=== PATIENT | female | born 1950 | race Caucasian/White ===

== ENCOUNTER → 2018-06-20 | Outpatient (CLI) | payer MEDICARE ==
[~2018-06-20] MED LIST: Prinivil5 MG PO
[2018-06-20 14:42] LABS: Alanine Aminotransfer (ALT/SGP 14 U/L (12-78); Albumin, Blood 3.6 g/dL (3.4-5.0); Albumin/Globulin Ratio 1.1 (0.8-1.8); Alk Phos 88 U/L (50-136); Anion Gap 8 mmol/L (6-16); Aspartate Aminotrans (AST/SGOT 13 U/L (12-37); Bilirubin, Total 0.6 mg/dL (0.1-1.0); Blood Urea Nitrogen 16 mg/dL (8-24); Bun/Creatinine Ratio 21.5 (12.0-20.0); CHOL/HDL RATIO 3.5; CO2, Blood 30 mmol/L (21-32); Chloride, Blood 100 mmol/L (98-108); Cholesterol 201 mg/dL (50-200); Creatinine, Blood 0.74 mg/dL (0.40-1.00); Globulin, Blood 3.2 g/dL (2.2-4.0); Glomerular Filtration Rate >60 (60-); Glucose, Blood 155 mg/dL (70-99); HDL Cholesterol 58 mg/dL (>39); LDL/HDL RATIO 1.6; Low Density Lipoprotein Chol 91 mg/dL (0-110); Potassium, Blood 3.7 mmol/L (3.5-5.5); Sodium, Blood 138 mmol/L (136-145); Total Protein, Blood 6.8 g/dL (6.4-8.2); Triglycerides 262 mg/dL (30-160); Very Low Density Lipoprot Chol 52 mg/dL (6-32)
== END | disposition home or self-care (01) ==
LOC: LAB SHORT 13:38 → LAB 13:38
PROVIDERS: Hospitalist
DX: I10 Essential (primary) hypertension (principal); E53.8 Deficiency of other specified B group vitamins; G62.9 Polyneuropathy, unspecified; E53.9 Vitamin B deficiency, unspecified
CPT/HCPCS: 80053; 80061; 82607

== ENCOUNTER → 2018-06-21 | Outpatient (CLI) | payer MEDICARE | END | disposition home or self-care (01) | LOC: LAB SHORT 13:23 → LAB 13:23 | DX: E53.8 Deficiency of other specified B group vitamins (principal); E63.9 Nutritional deficiency, unspecified; R73.9 Hyperglycemia, unspecified | CPT/HCPCS: 83036 ==

== ENCOUNTER → 2019-09-01 | Outpatient (CLI) | payer MEDICARE ==
[2019-09-01 14:59] LABS: CHOL/HDL RATIO 3.8; Cholesterol 222 mg/dL (50-200); HDL Cholesterol 58 mg/dL (>39); LDL/HDL RATIO 1.6; Low Density Lipoprotein Chol 95 mg/dL (0-110); Triglycerides 345 mg/dL (30-160); Very Low Density Lipoprot Chol 69 mg/dL (6-32)
== END | disposition home or self-care (01) ==
LOC: LAB 13:47 → LAB SHORT 13:47
PROVIDERS: Hospitalist
DX: E11.40 Type 2 diabetes mellitus with diabetic neuropathy, unspecified (principal); I10 Essential (primary) hypertension
CPT/HCPCS: 80061; 83036

== ENCOUNTER → 2019-09-04 | Outpatient (CLI) | payer MEDICARE | END | disposition home or self-care (01) | LOC: LAB SHORT 14:27 → LAB 14:27 | DX: E11.40 Type 2 diabetes mellitus with diabetic neuropathy, unspecified (principal); I10 Essential (primary) hypertension | CPT/HCPCS: 82043 ==

== ENCOUNTER 2020-03-29 16:32 | Emergency (ER) | payer MEDICARE ==
[~2020-03-29] VITALS: Ht 157.5 cm; Wt 105.7 kg
[~2020-03-29 16:32] MED LIST changes: +HYDCHL25 PO; +LISI5 PO; +METFORMIN HCL500 M2 PO; +METO100ER PO
[2020-03-29 17:24] LABS: BASOPHILS ABSOLUTE AUTO 0.09 K/mm3 (0.00-0.23); BASOPHILS PERCENT AUTO 1 % (0-2); EOSINOPHILS ABSOLUTE AUTO 0.18 K/mm3 (0.00-0.68); EOSINOPHILS PERCENT AUTO 2 % (0-6); Hematocrit 39.6 % (33.0-51.0); Hemoglobin 13.5 g/dL (11.5-16.0); IMMATURE GRAN ABSOLUTE AUTO 0.05 K/mm3 (0.00-0.10); IMMATURE GRAN PERCENT AUTO 1 % (0-1); LYMPHOCYTES ABSOLUTE AUTO 2.32 K/mm3 (0.84-5.20); LYMPHOCYTES PERCENT AUTO 22 % (21-46); MONOCYTES ABSOLUTE AUTO 0.66 K/mm3 (0.16-1.47); MONOCYTES PERCENT AUTO 6 % (4-13); Mean Corpuscular HGB 30.8 pg (26.0-34.0); Mean Corpuscular HGB Conc 34.1 g/dL (31.5-36.5); Mean Corpuscular Volume 90 fL (80-100); Mean Platelet Volume 10.5 fL (9.1-12.4); NEUTROPHILS ABSOLUTE AUTO 7.24 K/mm3 (1.96-9.15); NEUTROPHILS PERCENT AUTO 69 % (41-73); Platelet Count 288 K/mm3 (150-400); RDW Coefficient Variation 11.9 % (11.7-14.2); RDW Standard Deviation 39.5 fL (35.1-46.3); Red Blood Cell Count 4.38 M/mm3 (3.80-5.20); White Blood Cell Count 10.54 K/mm3 (4.00-11.30)
[2020-03-29 17:57] LABS: Alanine Aminotransfer (ALT/SGP 16 U/L (12-78); Albumin, Blood 3.9 g/dL (3.4-5.0); Albumin/Globulin Ratio 1.2 (0.8-1.8); Alk Phos 86 U/L (50-136); Anion Gap 9 mmol/L (6-16); Aspartate Aminotrans (AST/SGOT 20 U/L (12-37); Bilirubin, Total 0.6 mg/dL (0.1-1.0); Blood Urea Nitrogen 25 mg/dL (8-24); Bun/Creatinine Ratio 23.4 (12.0-20.0); CO2, Blood 29 mmol/L (21-32); Calcium, Blood 9.4 mg/dL (8.5-10.1); Chloride, Blood 105 mmol/L (98-108); Creatinine, Blood 1.07 mg/dL (0.40-1.00); Globulin, Blood 3.3 g/dL (2.2-4.0); Glomerular Filtration Rate 54 (60-); Glucose, Blood 177 mg/dL (70-99); Potassium, Blood 3.4 mmol/L (3.5-5.5); Sodium, Blood 143 mmol/L (136-145); Total Protein, Blood 7.2 g/dL (6.4-8.2); Troponin I <0.015 ng/mL (0.000-0.040)
[2020-03-29] MEDS ORDERED: ASPI325 PO (18:30)
[2020-03-29] MEDS ORDERED: AZIT250 PO (21:46)
== END 2020-03-29 22:02 | disposition home or self-care (01) ==
LOC: ER 16:32
PROVIDERS: Physician Assistant
DX: J18.9 Pneumonia, unspecified organism (principal); I10 Essential (primary) hypertension; E11.9 Type 2 diabetes mellitus without complications; Z79.82 Long term (current) use of aspirin; Z79.84 Long term (current) use of oral hypoglycemic drugs; Z88.2 Allergy status to sulfonamides; Z79.899 Other long term (current) drug therapy
CPT/HCPCS: 36415; 71260; 80053; 83880; 84484; 85025; 85379; 93005; 93010; 99285-25; Q9967

== ENCOUNTER 2021-07-09 18:38 | Emergency (ER) | payer MEDICARE ==
[~2021-07-09] VITALS: Ht 157.5 cm; Wt 105.7 kg
[~2021-07-09 18:38] MED LIST changes: +ASPI325 PO; +AZIT250 PO
[2021-07-09 19:33] LABS: BASOPHILS ABSOLUTE AUTO 0.11 K/mm3 (0.00-0.23); BASOPHILS PERCENT AUTO 1 % (0-2); EOSINOPHILS ABSOLUTE AUTO 0.25 K/mm3 (0.00-0.68); EOSINOPHILS PERCENT AUTO 2 % (0-6); Hematocrit 39.4 % (33.0-51.0); Hemoglobin 13.3 g/dL (11.5-16.0); IMMATURE GRAN ABSOLUTE AUTO 0.05 K/mm3 (0.00-0.10); IMMATURE GRAN PERCENT AUTO 1 % (0-1); LYMPHOCYTES PERCENT AUTO 19 % (21-46); MONOCYTES ABSOLUTE AUTO 0.54 K/mm3 (0.16-1.47); MONOCYTES PERCENT AUTO 5 % (4-13); Mean Corpuscular HGB 31.3 pg (26.0-34.0); Mean Corpuscular HGB Conc 33.8 g/dL (31.5-36.5); Mean Corpuscular Volume 93 fL (80-100); Mean Platelet Volume 10.3 fL (9.1-12.4); NEUTROPHILS ABSOLUTE AUTO 7.77 K/mm3 (1.96-9.15); NEUTROPHILS PERCENT AUTO 72 % (41-73); Platelet Count 279 K/mm3 (150-400); RDW Coefficient Variation 12.2 % (11.7-14.2); RDW Standard Deviation 41.8 fL (35.1-46.3); Red Blood Cell Count 4.25 M/mm3 (3.80-5.20); White Blood Cell Count 10.82 K/mm3 (4.00-11.30)
[2021-07-09 19:56] LABS: Alanine Aminotransfer (ALT/SGP 14 U/L (12-78); Albumin, Blood 3.8 g/dL (3.4-5.0); Albumin/Globulin Ratio 1.1 (0.8-1.8); Alk Phos 80 U/L (50-136); Anion Gap 7 mmol/L (6-16); Aspartate Aminotrans (AST/SGOT 17 U/L (12-37); Bilirubin, Total 0.4 mg/dL (0.1-1.0); Blood Urea Nitrogen 26 mg/dL (8-24); CO2, Blood 27 mmol/L (21-32); Calcium, Blood 9.3 mg/dL (8.5-10.1); Chloride, Blood 103 mmol/L (98-108); Creatinine, Blood 0.87 mg/dL (0.40-1.00); Globulin, Blood 3.5 g/dL (2.2-4.0); Glomerular Filtration Rate >60 (60-); Glucose, Blood 156 mg/dL (70-99); Potassium, Blood 3.6 mmol/L (3.5-5.5); Sodium, Blood 137 mmol/L (136-145); Total Protein, Blood 7.3 g/dL (6.4-8.2)
== END 2021-07-09 22:14 | disposition home or self-care (01) ==
LOC: ER 18:38
PROVIDERS: Physician Assistant
DX: R07.9 Chest pain, unspecified (principal); I10 Essential (primary) hypertension; E11.9 Type 2 diabetes mellitus without complications; Z79.82 Long term (current) use of aspirin; Z79.84 Long term (current) use of oral hypoglycemic drugs; Z79.899 Other long term (current) drug therapy; Z88.2 Allergy status to sulfonamides
CPT/HCPCS: 36415; 71046; 80053; 84484; 85025; 93005; 93010; 99284-25

== ENCOUNTER 2022-10-26 15:51 | Observation (INO) | payer MEDICARE ==
[2022-10-26 16:26] LABS: BASOPHILS ABSOLUTE AUTO 0.08 K/mm3 (0.00-0.23); BASOPHILS PERCENT AUTO 1 % (0-2); EOSINOPHILS ABSOLUTE AUTO 0.25 K/mm3 (0.00-0.68); EOSINOPHILS PERCENT AUTO 3 % (0-6); Hemoglobin 13.7 g/dL (11.5-16.0); IMMATURE GRAN ABSOLUTE AUTO 0.02 K/mm3 (0.00-0.10); IMMATURE GRAN PERCENT AUTO 0 % (0-1); LYMPHOCYTES ABSOLUTE AUTO 1.93 K/mm3 (0.84-5.20); LYMPHOCYTES PERCENT AUTO 23 % (21-46); MONOCYTES ABSOLUTE AUTO 0.51 K/mm3 (0.16-1.47); MONOCYTES PERCENT AUTO 6 % (4-13); Mean Corpuscular HGB 31.1 pg (26.0-34.0); Mean Corpuscular HGB Conc 34.3 g/dL (31.5-36.5); Mean Corpuscular Volume 91 fL (80-100); Mean Platelet Volume 10.2 fL (9.1-12.4); NEUTROPHILS ABSOLUTE AUTO 5.71 K/mm3 (1.96-9.15); NEUTROPHILS PERCENT AUTO 67 % (41-73); Platelet Count 265 K/mm3 (150-400); RDW Coefficient Variation 12.2 % (11.7-14.2); RDW Standard Deviation 40.7 fL (35.1-46.3)
[2022-10-26 16:53] LABS: Albumin, Blood 3.4 g/dL (3.4-5.0); Albumin/Globulin Ratio 0.9 (0.8-1.8); Bilirubin, Total 0.5 mg/dL (0.1-1.0); Bun/Creatinine Ratio 23.4 (12.0-20.0); Calcium, Blood 9.6 mg/dL (8.5-10.1); Creatinine, Blood 0.81 mg/dL (0.40-1.00); Globulin, Blood 3.9 g/dL (2.2-4.0); Potassium, Blood 3.5 mmol/L (3.5-5.5); Total Protein, Blood 7.3 g/dL (6.4-8.2)
[2022-10-26 21:00] VITALS: BP 153/59
--- NOTE | 2022-10-26 21:37 | NUR ---
PATIENT IS A NEW ADMIT FROM THE ED. AXOX 4 AND ARRIVED VIA W/C. SELF TRANSFER TO BED. DENIES CHEST PAIN, SOB, AND N/V. ON ROOM AIR. SPOUSE PRESENT ON ADMIT. REPORTS DAUGHTER IS PHARMACIST HERE AT HOSPITAL. FOOD PROVIDED PER DIET ORDER AND NPO >MIDNIGHT. REPORTS WANTS TO WATCH TV AFTER ASSESSMENT AND WILL LEAVE WITHIN THE HOUR TO CHECK ON NEW PUPPY AT HOME. TELEMETRY PLACED AND TECH REPORTS NSR 88. ORIENTED TO ROOM AND CALL LIGHT SYSTEM. WCTM.
[2022-10-27 04:01] VITALS: BP 153/61
--- NOTE | 2022-10-27 04:31 | NUR ---
SHIFT SUMMARY PATIENT HAD NO ACUTE CHANGES. AXOX 4 AND INDEPENDENT IN ROOM. DENIES CHEST PAIN, SOB, AND N/V. VSS/AFEBRILE. NPO AT THIS TIME. PIV REMAINS INTACT. SALON SHAMPOO ASSISTANT REPORTS NSR 88. SPOUSE PRESENT ON ADMIT AND LEFT AFTER A FEW HOURS. SLEPT MOST OF THE SHIFT. CALL LIGHT IN REACH. BED IN LOWEST POSITION. WILL CONTINUE TO MONITOR UNTIL DAY SHIFT NURSE ASSUMES CARE.
[2022-10-27 05:11] LABS: BASOPHILS ABSOLUTE AUTO 0.09 K/mm3 (0.00-0.23); BASOPHILS PERCENT AUTO 1 % (0-2); EOSINOPHILS ABSOLUTE AUTO 0.22 K/mm3 (0.00-0.68); EOSINOPHILS PERCENT AUTO 2 % (0-6); Hematocrit 38.2 % (33.0-51.0); Hemoglobin 13.2 g/dL (11.5-16.0); IMMATURE GRAN ABSOLUTE AUTO 0.02 K/mm3 (0.00-0.10); IMMATURE GRAN PERCENT AUTO 0 % (0-1); LYMPHOCYTES ABSOLUTE AUTO 1.63 K/mm3 (0.84-5.20); LYMPHOCYTES PERCENT AUTO 17 % (21-46); MONOCYTES PERCENT AUTO 7 % (4-13); Mean Corpuscular HGB 31.3 pg (26.0-34.0); Mean Corpuscular HGB Conc 34.6 g/dL (31.5-36.5); Mean Corpuscular Volume 91 fL (80-100); Mean Platelet Volume 10.5 fL (9.1-12.4); NEUTROPHILS ABSOLUTE AUTO 6.84 K/mm3 (1.96-9.15); NEUTROPHILS PERCENT AUTO 72 % (41-73); Platelet Count 216 K/mm3 (150-400); RDW Coefficient Variation 12.2 % (11.7-14.2); RDW Standard Deviation 40.4 fL (35.1-46.3); Red Blood Cell Count 4.22 M/mm3 (3.80-5.20)
[2022-10-27 05:35] LABS: Albumin/Globulin Ratio 0.9 (0.8-1.8); Bilirubin, Total 0.8 mg/dL (0.1-1.0); Bun/Creatinine Ratio 22.5 (12.0-20.0); Calcium, Blood 9.2 mg/dL (8.5-10.1); Creatinine, Blood 0.84 mg/dL (0.40-1.00); Globulin, Blood 3.5 g/dL (2.2-4.0); Magnesium, Blood 1.4 mg/dL (1.6-2.4); Potassium, Blood 3.4 mmol/L (3.5-5.5); Total Protein, Blood 6.5 g/dL (6.4-8.2)
[2022-10-27 07:12] VITALS: BP 141/55
[2022-10-27 15:34] VITALS: BP 146/61
[2022-10-27] MEDS ORDERED: METO100ER PO (17:39)
[2022-10-27] MEDS ORDERED: ASPI81CH PO (17:42)
--- NOTE | 2022-10-27 18:20 | NUR ---
DISCHARGE PATIENT DISCHARGED HOME. PATIENT ADMITTED WITH CHESTPAIN. PATIENT TO SEE DR NAJERA NEXT WEEK FOR TAVR CONSULTATION FOR HER AORTIC STENOSIS. CARDIAC ENZYMES DONE. NO FURTHER EPISODES OF CHEST PAIN ONCE ADMITTED TO THE FLOOR. METOPROLOL DOSING ADJUSTED TO HELP REDUCES EPISODES OF CHEST PAIN. DISCHARGE INSTRUCTIONS REVIEWED WITH PATIENT. IV DC'D. BELONGINGS WITH PATIENT. PATIENT TAKEN OUT BY WHEELCHAIR AND MET TO TRANSPORT PATIENT HOME. DISCHARGE INSTRUCTIONS SENT HOME WITH PATIENT.
== END 2022-10-27 18:22 | disposition home or self-care (01) ==
LOC: ER 15:51 → MEDS 15:52
PROVIDERS: Physician Assistant; ADMIT Student in an Organized Health Care Education/Training Program
DX: I35.0 Nonrheumatic aortic (valve) stenosis (principal); R07.89 Other chest pain; I10 Essential (primary) hypertension; R60.9 Edema, unspecified; E11.9 Type 2 diabetes mellitus without complications; Z79.4 Long term (current) use of insulin; Z88.2 Allergy status to sulfonamides; Z96.653 Presence of artificial knee joint, bilateral; Z90.710 Acquired absence of both cervix and uterus; Z79.84 Long term (current) use of oral hypoglycemic drugs
CPT/HCPCS: 36415; 71046; 80053; 83735; 83880; 84484; 85025; 93005; 93010; 96365; 96372; 96374; 96375; 99285-25; A9270; G0378; J1650; J1940; J3475

== ENCOUNTER 2023-01-02 12:11 | Observation (INO) | payer MEDICARE ==
[~2023-01-02] VITALS: Ht 157.5 cm; Wt 103.7 kg
[~2023-01-02 12:11] MED LIST changes: +ASPI81CH PO
[2023-01-02] MEDS ORDERED: HYDCHL25 PO (12:42)
[2023-01-02] MEDS ORDERED: PLAVIX75 MG PO (12:42)
[2023-01-02] MEDS ORDERED: FUROSEMIDE40 MG PO (12:42)
[2023-01-02] MEDS ORDERED: Vitamin B Comple1 EA PO (12:43)
[2023-01-02 13:01] LABS: BASOPHILS ABSOLUTE AUTO 0.08 K/mm3 (0.00-0.23); BASOPHILS PERCENT AUTO 1 % (0-2); EOSINOPHILS ABSOLUTE AUTO 0.19 K/mm3 (0.00-0.68); EOSINOPHILS PERCENT AUTO 2 % (0-6); Hematocrit 39.6 % (33.0-51.0); Hemoglobin 13.8 g/dL (11.5-16.0); IMMATURE GRAN ABSOLUTE AUTO 0.03 K/mm3 (0.00-0.10); IMMATURE GRAN PERCENT AUTO 0 % (0-1); LYMPHOCYTES ABSOLUTE AUTO 1.64 K/mm3 (0.84-5.20); LYMPHOCYTES PERCENT AUTO 17 % (21-46); MONOCYTES ABSOLUTE AUTO 0.65 K/mm3 (0.16-1.47); MONOCYTES PERCENT AUTO 7 % (4-13); Mean Corpuscular HGB 30.8 pg (26.0-34.0); Mean Corpuscular HGB Conc 34.8 g/dL (31.5-36.5); Mean Corpuscular Volume 88 fL (80-100); Mean Platelet Volume 10.7 fL (9.1-12.4); NEUTROPHILS ABSOLUTE AUTO 7.15 K/mm3 (1.96-9.15); NEUTROPHILS PERCENT AUTO 73 % (41-73); Platelet Count 279 K/mm3 (150-400); RDW Coefficient Variation 11.9 % (11.7-14.2); RDW Standard Deviation 38.8 fL (35.1-46.3); Red Blood Cell Count 4.48 M/mm3 (3.80-5.20); White Blood Cell Count 9.74 K/mm3 (4.00-11.30)
[2023-01-02 13:31] LABS: Albumin, Blood 3.6 g/dL (3.4-5.0); Bilirubin, Total 0.7 mg/dL (0.1-1.0); Bun/Creatinine Ratio 30.4 (12.0-20.0); Calcium, Blood 9.9 mg/dL (8.5-10.1); Creatinine, Blood 1.15 mg/dL (0.40-1.00); Globulin, Blood 3.7 g/dL (2.2-4.0); Potassium, Blood 2.8 mmol/L (3.5-5.5); Total Protein, Blood 7.3 g/dL (6.4-8.2)
[2023-01-02 16:43] VITALS: BP 134/76
--- NOTE | 2023-01-02 18:24 | NUR ---
PT ARRIVED TO PCU 11 FROM ER AT APROX 1635. PT A&OX4, ORIENTED TO ROOM/CALL LIGHT/UNIT ROUTINES. PT DENIES CHEST PAIN ON ARRIVAL TO ROOM. SEE DOCUMENTED VS/ASSESSMENT. ADMISSION DOCUMENTATION COMPLETED. PT ABLE TO STAND AND AMBULATE FROM GURNEY TO BED W/O DIFFICULTY. NO ACUTE NEEDS IDENTIFIED. ORDERS REVIEWED. PT STATES SHE HAS NO NEEDS AT THIS TIME. WILL CONTINUE TO MONITOR AND GIVE REPORT TO NOC SHIFT RN.
[2023-01-02 19:44] VITALS: BP 124/67
[2023-01-02 23:35] VITALS: BP 142/60
[2023-01-03 04:04] VITALS: BP 117/89
--- NOTE | 2023-01-03 05:04 | NUR ---
SHIFT SUMMARY: Pt denies chest pain. Vitals stable overnight. Ambulating to bathroom, independent after set-up.
[2023-01-03 05:14] LABS: BASOPHILS ABSOLUTE AUTO 0.09 K/mm3 (0.00-0.23); BASOPHILS PERCENT AUTO 1 % (0-2); EOSINOPHILS ABSOLUTE AUTO 0.32 K/mm3 (0.00-0.68); EOSINOPHILS PERCENT AUTO 4 % (0-6); Hematocrit 32.4 % (33.0-51.0); Hemoglobin 11.3 g/dL (11.5-16.0); IMMATURE GRAN ABSOLUTE AUTO 0.03 K/mm3 (0.00-0.10); IMMATURE GRAN PERCENT AUTO 0 % (0-1); LYMPHOCYTES ABSOLUTE AUTO 1.73 K/mm3 (0.84-5.20); LYMPHOCYTES PERCENT AUTO 21 % (21-46); MONOCYTES ABSOLUTE AUTO 0.65 K/mm3 (0.16-1.47); MONOCYTES PERCENT AUTO 8 % (4-13); Mean Corpuscular HGB 31.2 pg (26.0-34.0); Mean Corpuscular HGB Conc 34.9 g/dL (31.5-36.5); Mean Corpuscular Volume 90 fL (80-100); Mean Platelet Volume 10.9 fL (9.1-12.4); NEUTROPHILS PERCENT AUTO 67 % (41-73); Platelet Count 210 K/mm3 (150-400); RDW Standard Deviation 39.2 fL (35.1-46.3); Red Blood Cell Count 3.62 M/mm3 (3.80-5.20); White Blood Cell Count 8.42 K/mm3 (4.00-11.30)
[2023-01-03 05:49] LABS: Albumin, Blood 2.9 g/dL (3.4-5.0); Albumin/Globulin Ratio 0.9 (0.8-1.8); Bilirubin, Total 0.7 mg/dL (0.1-1.0); Bun/Creatinine Ratio 31.7 (12.0-20.0); Calcium, Blood 8.9 mg/dL (8.5-10.1); Creatinine, Blood 1.01 mg/dL (0.40-1.00); Globulin, Blood 3.1 g/dL (2.2-4.0); Potassium, Blood 3.2 mmol/L (3.5-5.5)
[2023-01-03 07:32] VITALS: BP 134/76
--- NOTE | 2023-01-03 07:45 | NUR ---
ASSUMED CARE REPORT FROM LILIANE SHAFFER AT 0700. PT RESTING IN BED. A&OX 4. FOLLOWS COMMANDS. DENIES CP, SOB OR OTHER COMPLAINTS. STATES PROVIDER TOLD HER SHE WOULD BE D/C'D TODAY TO MAKE IT TO HER PRE-OP APPT IN [place] FOR TAVR AT 1200. LUNGS CLEAR. ON RA. VSS. SR, RATE 60'S. BP STABLE. NS INFUSING AT 50 ML/NR. 1+ EDEMA BLE. PT INDEPENDENT IN ROOM. ABLE TO MAKE NEEDS KNOWN. WILL CONTINUE TO MONITOR.
--- NOTE | 2023-01-03 08:50 | NUR ---
DISCHARGE DR ACOSTA ROUNDED. D/C INSTRUCTIONS REVIEWED c PT. VERBALIZED UNDERSTANDING OF INSTRUCTIONS. PT TO GO TO [facility] FOR PRE OP APPT AT 1200. PT TO SCHEDULE F/U APPT c DR LOPEZ IN TWO WEEKS. IV REMOVED, PRESSURE DRESSING APPLIED. ASSISTED TO CAR VIA WC.
== END 2023-01-03 08:47 | disposition home or self-care (01) ==
LOC: ER 12:11 → PCU 12:12
PROVIDERS: Family Medicine; Student in an Organized Health Care Education/Training Program; ADMIT Internal Medicine
DX: R07.89 Other chest pain (principal); Z86.16 Personal history of COVID-19; E11.9 Type 2 diabetes mellitus without complications; Z96.653 Presence of artificial knee joint, bilateral; I35.0 Nonrheumatic aortic (valve) stenosis; R77.8 Other specified abnormalities of plasma proteins; N17.9 Acute kidney failure, unspecified; I50.30 Unspecified diastolic (congestive) heart failure; I11.0 Hypertensive heart disease with heart failure; I25.10 Atherosclerotic heart disease of native coronary artery without angina pectoris; E87.6 Hypokalemia
CPT/HCPCS: 36415; 71046; 80053; 82947; 83690; 84484; 85025; 93005; 93010; 99285-25; A9270; G0378; J7030

== ENCOUNTER 2024-01-01 18:28 | Emergency (ER) | payer OTHER, MEDICARE ==
[~2024-01-01] VITALS: Ht 157.5 cm; Wt 101.2 kg
[~2024-01-01 18:28] MED LIST changes: +FUROSEMIDE40 MG PO; +PLAVIX75 MG PO; +Vitamin B Comple1 EA PO
[2024-01-01 19:13] VITALS: BP 167/69
== END 2024-01-01 20:55 | disposition home or self-care (01) ==
LOC: ER 18:28
DX: M25.512 Pain in left shoulder (principal); W01.0XXA Fall on same level from slipping, tripping and stumbling without subsequent striking against object, initial encounter; I10 Essential (primary) hypertension; E11.9 Type 2 diabetes mellitus without complications; Z88.2 Allergy status to sulfonamides; Z79.84 Long term (current) use of oral hypoglycemic drugs; Z79.82 Long term (current) use of aspirin; Z79.899 Other long term (current) drug therapy
CPT/HCPCS: 73030; 73060; 99283-25

== ENCOUNTER → 2024-01-09 | Outpatient (CLI) | payer MEDICARE ==
[2024-01-09 15:32] LABS: CHOL/HDL RATIO 2.1; Cholesterol 135 mg/dL (50-200); HDL Cholesterol 63 mg/dL (>39); LDL/HDL RATIO 0.5; Low Density Lipoprotein Chol 30 mg/dL (0-110); Triglycerides 208 mg/dL (30-160); Very Low Density Lipoprot Chol 42 mg/dL (6-32)
[2024-01-09 15:56] LABS: Microalb/Creat Ratio UR, Rand Unable to Calculate mg/g (0.000-30.000); Microalbumin, Random Urine <5.000 mg/L (0.000-20.000)
== END | disposition home or self-care (01) ==
LOC: LAB 09:00 → LAB SHORT 09:00
PROVIDERS: Hospitalist
DX: E11.69 Type 2 diabetes mellitus with other specified complication (principal); E78.2 Mixed hyperlipidemia
CPT/HCPCS: 80061; 82043; 82570; 83036

== ENCOUNTER 2024-07-02 10:11 | Day surgery (SDC) | payer MEDICARE ==
[~2024-07-02] VITALS: Ht 157.5 cm; Wt 104.2 kg
[~2024-07-02 10:11] MED LIST changes: +ATOR10 PO; +Bupivacaine 0.5% W/EPI 1:200000 SDV 30 ML Vial ONE; +Coumadin2 MG PO; +Dexmedetomidine HCL 200 MCG / 2 ML ONE; +FURO20 PO; +Lisinopril10 MG PO; +METF500 PO; +METO100ER; +MOBIC15 MG PO; +POTASSIUM CHLORIDE PO
[2024-07-02] MEDS ORDERED: CeFAZolin Sodium 2,000 MG VIAL ONE (11:07)
[2024-07-02] MEDS ORDERED: FentaNYL Citrate 50 MCG/ML 2 ML Injection ONE (11:23)
[2024-07-02] MEDS ORDERED: propofoL 20 ML IV ONE (11:23)
[2024-07-02] MEDS ORDERED: Lidocaine 2%-Epineph 1:200000 20 ML SDV ONE (11:24)
[2024-07-02] MEDS ORDERED: Ketorolac Tromethamine 30mg Vial ONE (11:24)
[2024-07-02] MEDS ORDERED: Midazolam HCl 1MG / ML 2ML Vial ONE ×2 (11:24→12:27)
[2024-07-02] MEDS ORDERED: Dexamethasone Sod Phos 10 MG/ML 1ML VIAL ONE (11:24)
[2024-07-02] MEDS ORDERED: Sugammadex Sodium 200 MG/2ML SDV (100 MG/ML) ONE (11:24)
[2024-07-02] MEDS ORDERED: Rocuronium Bromide 10 MG/ML 5ML Injection IV ONE (11:24)
[2024-07-02] MEDS ORDERED: Ondansetron HCl 2 MG / ML 2ML Vial ONE (11:24)
[2024-07-02] MEDS ORDERED: CENTRUM SILVER1 EAC2 PO (11:32)
[2024-07-02] MEDS ORDERED: [UNRECOGNIZED DRUG - OTHER] (11:32)
[2024-07-02] MEDS ORDERED: Lactated Ringer's 1,000 ML IV ONE ×2 (11:48→14:14)
--- NOTE | 2024-07-02 12:22 | NUR ---
07/02/24 1222 BRONWYN CHRISTINA TIME OUT [id number]
[2024-07-02] MEDS ORDERED: EPINEPhrine HCl 1 MG/ML 1ML Amp ONE (12:46)
--- NOTE | 2024-07-02 14:03 | NUR ---
07/02/24 1403 Yesenia Moreira PT HAS MULTIPLE SCRATCHES RIGHT THIGH, PT STATES FROM HER SCRATCHING HER LEG, PER DR ESCAMILLA OK TO PROCEED
[2024-07-02] MEDS ORDERED: ePHEDrine Sulfate 50 MG/ML 1ML Injection ONE (14:04)
--- NOTE | 2024-07-02 17:12 | NUR ---
07/02/241711 Isak Braun PT STATES SDU B/P CLOSER TO BASELINE THAN PRE-OP B/P. SHE DENIED CP, SOB, DIZZINESS, WEAKNESS, AND OTHER CARDIAC SYMPTOMS. NONE WERE OBSERVED. SHE WAS INSTRUCTED TO MONITOR B/P AT HOME AND FOLLOW UP IF NEEDED.
[2024-07-02 17:13] VITALS: BP 122/63
== END 2024-07-02 17:00 | disposition home or self-care (01) ==
LOC: ORSCSDS 10:11
PROVIDERS: Orthopaedic Surgery
PROC: 0LM24ZZ Reattachment of Left Shoulder Tendon, Percutaneous Endoscopic Approach (ICD-10-PCS; principal; 2024-07-02 11:45)
PROC: 0RNK4ZZ Release Left Shoulder Joint, Percutaneous Endoscopic Approach (ICD-10-PCS; principal; 2024-07-02 11:45)
DX: M75.122 Complete rotator cuff tear or rupture of left shoulder, not specified as traumatic (principal); M75.52 Bursitis of left shoulder; I10 Essential (primary) hypertension; E11.9 Type 2 diabetes mellitus without complications; E66.01 Morbid (severe) obesity due to excess calories; Z68.41 Body mass index [BMI] 40.0-44.9, adult; Z79.899 Other long term (current) drug therapy; Z79.01 Long term (current) use of anticoagulants
CPT/HCPCS: 82947; C1713; J0171; J0690; J1100; J1885; J2250; J2405; J2704; J3010; J7120

== ENCOUNTER → 2025-02-26 | Outpatient (CLI) | payer MEDICARE ==
[~2025-02-26] MED LIST changes: -Bupivacaine 0.5% W/EPI 1:200000 SDV 30 ML Vial ONE; +CENTRUM SILVER1 EAC2 PO; -Dexmedetomidine HCL 200 MCG / 2 ML ONE; +[UNRECOGNIZED DRUG - OTHER]
== END ==
LOC: LAB 13:31 → LAB SHORT 13:31
DX: N30.00 Acute cystitis without hematuria (principal)
CPT/HCPCS: 87086